=== PATIENT | female | born 2000 | race American Indian/Alaskan Native ===

== ENCOUNTER 2021-10-13 17:16 | Emergency (ER) | payer MEDICAID ==
[2021-10-13 18:44] VITALS: BP 129/78
[2021-10-13 21:09] LABS: Basophils % (Auto) 0.5 % (0.0-1.8); Eosinophils # (Auto) 0.1 K/mm3 (0.0-0.4); Eosinophils % (Auto) 0.9 % (0.0-4.3); Hematocrit 43.7 % (30.3-42.9); Lymphocytes # (Auto) 2.7 K/mm3 (1.2-5.4); Lymphocytes % (Auto) 33.6 % (13.4-35.0); Mean Corpuscular HGB Conc 32 % (30-34); Mean Corpuscular Volume 86 fl (79-97); Monocytes # (Auto) 0.8 K/mm3 (0.0-0.8); Platelet Count 438 K/mm3 (140-440); Red Cell Distribution Width 13.8 % (13.2-15.2)
[2021-10-13 21:21] LABS: Blood Urea Nitrogen 8 mg/dL (7-17); Calcium 9.5 mg/dL (8.4-10.2); Hemolysis Index 35
[2021-10-13 21:23] LABS: BUN/Creatinine Ratio 13
--- NOTE | 2021-10-13 21:48 | XRay Report ---
CHEST 2 VIEWS INDICATION / CLINICAL INFORMATION: COVID+, CP. COMPARISON: None available. FINDINGS: SUPPORT DEVICES: None. HEART / MEDIASTINUM: The heart size and pulmonary vasculature are normal. The aorta is normal in [place]in. LUNGS / PLEURA: No significant pulmonary or pleural abnormality. No pneumothorax. ADDITIONAL FINDINGS: No significant additional findings. IMPRESSION: No acute findings. Signer Name: Jairo Ray MD Signed: 10/13/2021 9:44 PM Workstation Name: [id number]
--- NOTE | 2021-10-13 22:14 | Emergency Department Report ---
HPI - General Chief Complaint: Upper Respiratory Infection PUI?: Yes Time Seen by Provider: 10/13/21 21:49 - HPI HPI: MSE 6 The patient is a 21-year-old female presenting with a chief complaint of chest pain. The patient states she developed cold symptoms September 29 which included headache, body aches and subjective fever as well as a cough that was nonproductive. The patient admits to nausea without vomiting. The patient states her first COVID test came back negative but she was told it was collected incorrectly. The patient was tested again for COVID on 10/09/2020 and the test came back positive. Patient complains of intermittent chest pain has been sharp in nature for the past 3 to 4 days. Patient denies pleurisy. ED Past Medical Hx - Past Medical History Previous Medical History?: No - Surgical History Past Surgical History?: No - Family History Family history: no significant - Social History Smoking Status: Never Smoker Substance Use Type: None - Medications Home Medications: Home Medications Medication Instructions Recorded Confirmed Last Taken Type Cyclobenzaprine [Flexeril] 10 mg PO TID PRN #14 10/13/21 Unknown Rx Ibuprofen [Motrin 800 MG tab] 800 mg PO Q8HR PRN #20 tablet 10/13/21 Unknown Rx ED Review of Systems ROS: Stated complaint: FLU/COVID SYMPTOMS Other details as noted in HPI Constitutional: fever (Subjective) Eyes: denies: eye pain ENT: denies: throat pain Respiratory: cough. denies: shortness of breath Cardiovascular: chest pain Endocrine: no symptoms reported Gastrointestinal: nausea. denies: vomiting Genitourinary: denies: dysuria Musculoskeletal: myalgia Neurological: denies: headache Physical Exam - Physical Exam Vital Signs: Vital Signs 10/13/21 18:43 Temperature 98.3 F Pulse Rate 73 Respiratory 16 Rate Blood Pressure 129/78 [Right] O2 Sat by Pulse 99 Oximetry Physical Exam: GENERAL: The patient is well-developed well-nourished female lying on stretcher not appearing to be in acute distress. [] HEENT: Normocephalic. Atraumatic. Extraocular motions are intact. Patient has moist mucous membranes. NECK: Supple. Trachea midline CHEST/LUNGS: Clear to auscultation. There is no respiratory distress noted. HEART/CARDIOVASCULAR: Regular. There is no tachycardia. There is no gallop rub or murmur. ABDOMEN: Abdomen is soft, nontender. Patient has normal bowel sounds. There is no abdominal distention. SKIN: There is no rash. There is no edema. There is no diaphoresis. NEURO: The patient is awake, alert, and oriented. The patient is cooperative. The patient has no focal neurologic deficits. The patient has normal speech. GCS 15 MUSCULOSKELETAL: There is no evidence of acute injury. ED Course Vital Signs 10/13/21 18:43 Temperature 98.3 F Pulse Rate 73 Respiratory 16 Rate Blood Pressure 129/78 [Right] O2 Sat by Pulse 99 Oximetry - Reevaluation(s) Reevaluation #1: 10/13/21 23:27 Patient's 2-minute walking SPO2 98% on room air ED Medical Decision Making - Lab Data Result diagrams: 10/13/21 20:50 10/13/21 20:50 - EKG Data -: EKG Interpreted by Me EKG shows normal: sinus rhythm, axis Rate: normal - EKG Data When compared to previous EKG there are: previous EKG unavailable Interpretation: other (No ischemic changes seen) - Radiology Data Radiology results: report reviewed (Chest x-ray), image reviewed (Chest x-ray) interpreted by me: Chest x-ray-no definite focal infiltrate, no pneumothorax [facility] [address] [place] [address] XRay Report Signed Patient: BANDAR FLETCHER MR#: [id number] : 2000 Acct:[id number] Age/Sex: 21 / F ADM Date: 10/13/21 Loc: ED Attending Dr: Ordering Physician: BRYNN SINGLETARY MD Date of Service: 10/13/21 Procedure(s): XR chest routine 2V Accession Number(s): [id number] cc: BRYNN SINGLETARY MD Fluoro Time In Minutes: CHEST 2 VIEWS INDICATION / CLINICAL INFORMATION: COVID+, CP. COMPARISON: None available. FINDINGS: SUPPORT DEVICES: None. HEART / MEDIASTINUM: The heart size and pulmonary vasculature are normal. The aorta is normal in caliber. LUNGS / PLEURA: No significant pulmonary or pleural abnormality. No pneumothorax. ADDITIONAL FINDINGS: No significant additional findings. IMPRESSION: No acute findings. Signer Name: Jairo Ray MD Signed: 10/13/2021 9:44 PM Workstation Name: [id number] Transcribed By: RT Dictated By: Jairo Ray MD Electronically Authenticated By: Jairo Ray MD Signed Date/Time: 10/13/212143 DD/ 43 TD/TT: Print Cancel - Differential Diagnosis COVID, myalgia, anxiety, costochondritis, ACS Critical care attestation.: If time is entered above; I have spent that time in minutes in the direct care of this critically ill patient, excluding procedure time. ED Disposition Clinical Impression: COVID, Costochondritis Disposition: HOME / SELF CARE / HOMELESS Is pt being admited?: No Does the pt Need Aspirin: No Condition: Stable Instructions: Costochondritis, [id number] Additional Instructions: Return to the emergency department should you develop worsening symptoms, inability to tolerate food or liquids, high fever or any other concerns Prescriptions: Cyclobenzaprine [Flexeril] 10 mg PO TID PRN #14 PRN Reason: Muscle Spasm Ibuprofen [Motrin 800 MG tab] 800 mg PO Q8HR PRN #20 tablet PRN Reason: Pain, Moderate (4-6) Referrals: [facility] [Provider Group] - 3-5 Days Time of Disposition: 23:29 Heart Score - HEART Score History: Slightly suspicious EKG: Normal Age: < 45 Risk factors: No known risk factors Troponin: < normal limit HEART Score: 0 - EKG Read Time Time EKG Completed: 21:55 EKG Read Time: 21:56
== END 2021-10-13 23:34 | disposition home or self-care (01) ==
LOC: ED 17:16
DX: U07.1 COVID-19 (principal); M94.0 Chondrocostal junction syndrome [Tietze]
CPT/HCPCS: 36415; 71046; 80048; 84484; 84703; 85025; 93005; 99283

== ENCOUNTER 2022-02-05 13:28 | Emergency (ER) | payer MEDICAID ==
[2022-02-05 15:08] VITALS: BP 130/70
[2022-02-05 16:03] LABS: Basophils % (Auto) 0.3 % (0.0-1.8); Eosinophils # (Auto) 0.1 K/mm3 (0.0-0.4); Eosinophils % (Auto) 0.6 % (0.0-4.3); Hematocrit 39.4 % (30.3-42.9); Hemoglobin 12.8 gm/dl (10.1-14.3); Lymphocytes # (Auto) 2.4 K/mm3 (1.2-5.4); Mean Corpuscular HGB Conc 32 % (30-34); Mean Corpuscular Volume 85 fl (79-97); Monocytes # (Auto) 0.7 K/mm3 (0.0-0.8); Monocytes % (Auto) 7.1 % (0.0-7.3); Platelet Count 385 K/mm3 (140-440); Red Blood Count 4.63 M/mm3 (3.65-5.03); Red Cell Distribution Width 14.2 % (13.2-15.2)
[2022-02-05 16:35] LABS: Blood Urea Nitrogen 6 mg/dL (7-17); Calcium 9.9 mg/dL (8.4-10.2); Hemolysis Index 4
[2022-02-05 16:36] LABS: BUN/Creatinine Ratio 10
--- NOTE | 2022-02-05 17:16 | Emergency Department Report ---
ED Female HPI - General Chief complaint: Abdominal Pain Stated complaint: HAVING CRAMPS Time Seen by Provider: 02/05/22 15:18 Source: patient Mode of arrival: Ambulatory Limitations: No Limitations - History of Present Illness Initial comments: Patient is a 21-year-old female that comes to the emergency room after having a positive home test. She is complaining of cramping as if she is can start her period. Her last menstrual cycle was 3-28. This would be her second and she has 1 living child Patient denies any vaginal bleeding. She denies any discharge. She denies any dysuria. She denies back pain. She denies abdominal pain. She denies nausea and vomiting. She denies fever or chills. Patient is ambulatory, not ill nontoxic-appearing on arrival to the ER Severity scale (0 -10): 1 Quality: cramping Improves with: none Worsens with: none Are you Now?: Yes Associated Symptoms: denies other symptoms. denies: vaginal discharge, vaginal bleeding, abdominal pain, nausea/vomiting, fever/chills, headaches, loss of appetite, dysuria, hematuria, rash, seizure, shortness of breath, syncope, weakness - Related Data Sexually active: Yes : 2 Para: 1 Previous Rx's Medication Instructions Recorded Last Taken Type Cyclobenzaprine [Flexeril] 10 mg PO TID PRN #14 10/13/21 Unknown Rx Ibuprofen [Motrin 800 MG tab] 800 mg PO Q8HR PRN #20 tablet 10/13/21 Unknown Rx Allergies Allergy/AdvReac Type Severity Reaction Status Date / Time No Known Allergies Allergy Unverified 10/13/21 18:42 ED Review of Systems ROS: Stated complaint: HAVING CRAMPS Other details as noted in HPI Comment: All other systems reviewed and negative ED Past Medical Hx - Past Medical History Previous Medical History?: No - Surgical History Past Surgical History?: No - Family History Family history: no significant - Social History Smoking Status: Never Smoker Substance Use Type: None - Medications Home Medications: Home Medications Medication Instructions Recorded Confirmed Last Taken Type Cyclobenzaprine [Flexeril] 10 mg PO TID PRN #14 10/13/21 Unknown Rx Ibuprofen [Motrin 800 MG tab] 800 mg PO Q8HR PRN #20 tablet 10/13/21 Unknown Rx ED Physical Exam - General Limitations: No Limitations General appearance: alert, in no apparent distress - Head Head exam: Present: atraumatic, normocephalic - Eye Eye exam: Present: normal appearance - ENT ENT exam: Present: mucous membranes moist - Neck Neck exam: Present: normal inspection - Respiratory Respiratory exam: Present: normal lung sounds bilaterally. Absent: respiratory distress - Cardiovascular Cardiovascular Exam: Present: regular rate, normal rhythm. Absent: systolic murmur, diastolic murmur, rubs, gallop - GI/Abdominal GI/Abdominal exam: Present: soft, normal bowel sounds - Extremities Exam Extremities exam: Present: normal inspection - Back Exam Back exam: Present: normal inspection - Neurological Exam Neurological exam: Present: alert, oriented X3 - Psychiatric Psychiatric exam: Present: normal affect, normal mood - Skin Skin exam: Present: warm, dry, intact, normal color. Absent: rash ED Course Vital Signs 02/05/22 15:07 Temperature 98.6 F Pulse Rate 85 Respiratory 16 Rate Blood Pressure 130/70 O2 Sat by Pulse 100 Oximetry ED Medical Decision Making - Lab Data Result diagrams: 02/05/22 15:39 02/05/22 15:39 - Radiology Data Radiology results: report reviewed, image reviewed see report - Medical Decision Making Labs 02/05/22 02/05/22 02/05/22 15:39 15:39 15:39 WBC 9.8 RBC 4.63 Hgb 12.8 Hct 39.4 MCV 85 MCH 28 MCHC 32 RDW 14.2 Plt Count 385 Lymph % (Auto) 24.0 Holmes % (Auto) 7.1 Eos % (Auto) 0.6 Baso % (Auto) 0.3 Lymph # (Auto) 2.4 Holmes # (Auto) 0.7 Eos # (Auto) 0.1 Baso # (Auto) 0.0 Seg Neutrophils % 68.0 Seg Neutrophils # 6.6 Sodium 137 Potassium 4.0 Chloride 101.8 Carbon Dioxide 20 L Anion Gap 19 BUN 6 L Creatinine 0.6 Estimated GFR > 60 BUN/Creatinine Ratio 10 Glucose 91 Calcium 9.9 HCG, Qual Positive HCG, Quant Blood Type Ord Rhogam Gestat Weeks 02/05/22 02/05/22 15:39 15:39 WBC RBC Hgb Hct MCV MCH MCHC RDW Plt Count Lymph % (Auto) Holmes % (Auto) Eos % (Auto) Baso % (Auto) Lymph # (Auto) Holmes # (Auto) Eos # (Auto) Baso # (Auto) Seg Neutrophils % Seg Neutrophils # Sodium Potassium Chloride Carbon Dioxide Anion Gap BUN Creatinine Estimated GFR BUN/Creatinine Ratio Glucose Calcium HCG, Qual HCG, Quant 6159 H Blood Type B POSITIVE Ord Rhogam Gestat Weeks Rh pos Vital Signs 02/05/22 15:07 Temperature 98.6 F Pulse Rate 85 Respiratory 16 Rate Blood Pressure 130/70 O2 Sat by Pulse 100 Oximetry Labs noted Ultrasound with gestational sac, no ectopic Rh+ hCG noted She had the findings of the above work-up with the patient. She understands that she needs to see [facility] [employer] [facility] in 48 hours for reevaluation. She has been given a referral. On discharge exam patient is ambulatory, not ill, nontoxic and afe brile. She is taking p.o. - Differential Diagnosis ro ab Critical care attestation.: If time is entered above; I have spent that time in minutes in the direct care of this critically ill patient, excluding procedure time. ED Disposition Clinical Impression: Disposition: 01 HOME / SELF CARE / HOMELESS Is pt being admited?: No Does the pt Need Aspirin: No Condition: Stable Instructions: First Trimester of , Abdominal Pain (ED) Additional Instructions: Pelvic rest Tylenol for pain Follow-up with [facility] [facility] in 48 hours as we discussed. Referral below Referrals: REJI CALVO MD [Staff Physician] - 3-5 Days Time of Disposition: 17:15
--- NOTE | 2022-02-05 17:40 | Ultrasound Report ---
OB Ultrasound HISTORY: abd pain preg. TECHNIQUE: Grayscale and color imaging performed. COMPARISON: None FINDINGS: Uterus measures 9.2 x 5.7 x 6.9. Endometrial echo complex measures 1.6 cm. There is a cysti c structure with diameter of 8 mm corresponding with an EGA of 5 weeks and 4 days but there is no fet al pole, yolk sac, or cardiac activity. Ovaries appear unremarkable with likely functional cyst in the left ovary measuring 3.3 cm. No signif icant pelvic free fluid. IMPRESSION: 1. Possible intrauterine gestational sac with no pole identified. 2. Mildly complex left ovarian cyst, likely functional or hemorrhagic. Both of these findings can be followed up with repeat pelvic ultrasound as indicated. Signer Name: Joshua Gregorio MD Signed: 02/05/2022 5:35 PM Workstation Name: [id number]
[2022-02-05] MEDS ORDERED: ACETAMINOPHEN 500 MG TAB PO ONE (17:47)
== END 2022-02-05 18:04 | disposition home or self-care (01) ==
LOC: ED 13:28
DX: O26.891 Other specified pregnancy related conditions, first trimester (principal); R10.9 Unspecified abdominal pain; Z3A.01 Less than 8 weeks gestation of pregnancy
CPT/HCPCS: 36415; 76801; 76817; 80048; 84702; 84703; 85025; 86900; 86901; 99284

== ENCOUNTER 2022-02-28 16:30 | Emergency (ER) | payer MEDICAID ==
[2022-02-28] MEDS ORDERED: ACETAMINOPHEN 500 MG TAB PO ONE (19:56)
[2022-02-28 20:21] LABS: Basophils % (Auto) 0.3 % (0.0-1.8); Eosinophils # (Auto) 0.1 K/mm3 (0.0-0.4); Eosinophils % (Auto) 0.7 % (0.0-4.3); Hematocrit 36.3 % (30.3-42.9); Hemoglobin 12.2 gm/dl (10.1-14.3); Lymphocytes % (Auto) 20.1 % (13.4-35.0); Mean Corpuscular HGB Conc 34 % (30-34); Mean Corpuscular Volume 84 fl (79-97); Monocytes # (Auto) 1.1 K/mm3 (0.0-0.8); Monocytes % (Auto) 10.4 % (0.0-7.3); Platelet Count 347 K/mm3 (140-440); Red Blood Count 4.31 M/mm3 (3.65-5.03)
[2022-02-28 20:31] LABS: Alanine Aminotransferase 8 units/L (7-56); Albumin 4.4 g/dL (3.9-5); Blood Urea Nitrogen 6 mg/dL (7-17); Calcium 9.2 mg/dL (8.4-10.2); Hemolysis Index 4
[2022-02-28 20:42] LABS: BUN/Creatinine Ratio 10
[2022-02-28 20:48] LABS: Bilirubin,Urine NEG (Negative); Blood,Urine NEG (Negative); Color,Urine Yellow (Yellow); Mucus,Urine 2+ /HPF; Protein,Urine <15 mg/dL mg/dL (Negative); Urobilinogen,Urine < 2.0 mg/dL (<2.0)
--- NOTE | 2022-02-28 21:05 | Ultrasound Report ---
ULTRASOUND OBSTETRIC REASON FOR EXAM: PELVIC PAIN TECHNIQUE: Transabdominal and transvaginal ultrasound was performed to evaluate a first trimester pre gnancy. COMPARISON: 02/05/2022 FINDINGS: FINDINGS: The pole, yolk sac, and gestational sac are normal in appearance. [place]-rump length: 21 mm. This corresponds with a gestational age of 8 weeks 5 days. heart rate: 174 bpm Perigestational hemorrhage: No evidence of perigestational hemorrhage on the provided images. MATERNAL FINDINGS: The uterus demonstrates an otherwise unremarkable sonographic appearance. The right ovary demonstrates a normal sonographic appearance. There is a 3.6 cm cyst within the left ovary, likely reflecting corpus luteum. Cul-de-sac: There is no free fluid. IMPRESSION: Viable intrauterine . Gestational age is 8 weeks 5 days by ultrasound. Recommend clinical sc reening and ultrasound follow-up in the second trimester to screen for anomalies. 3.6 cm cyst within left ovary, most consistent with corpus luteum cyst. Signer Name: Robert Guevara MD Signed: 02/28/2022 9:00 PM Workstation Name: [id number]
--- NOTE | 2022-02-28 21:51 | Emergency Department Report ---
ED General Adult HPI - General Chief complaint: Chest Pain Stated complaint: 8WKS /CHEST PAIN/LOWER BACK PAIN Source: patient Mode of arrival: Ambulatory Limitations: No Limitations - History of Present Illness Initial comments: Patient is a A0 21-year-old -[place] female who is approximately 8 weeks gestation presents to the ED with complaint of anterior chest wall pain that radiates to the mid posterior thoracic area due to heavy lifting at work for the last 1 week, worse in the last 2 days. Patient is compliant on diffuse low abdominal pain for the last 3 days. Patient denies vaginal bleeding, vaginal discharge, dizziness, syncope, dysuria, urinary frequency and urgency, low back pain, fever, chills, cough, nausea and vomiting or diarrhea, sore throat, nasal and sinus congestion or headache, traumatic injury or palpitations. MD Complaint: Anterior chest wall pain; mid posterior thoracic pain; lower abdominal pain -: Sudden, week(s) (1) Location: chest, back Radiation: back (Mid posterior thoracic area) Severity scale (0 -10): 6 Quality: aching, sharp Consistency: intermittent Improves with: none Worsens with: movement Associated Symptoms: denies other symptoms, chest pain (Anterior chest wall pain). denies: confusion, cough, diaphoresis, fever/chills, headaches, loss of appetite, malaise, nausea/vomiting, rash, seizure, shortness of breath, syncope, weakness Treatments Prior to Arrival: none - Related Data Previous Rx's Medication Instructions Recorded Last Taken Type Cyclobenzaprine [Flexeril] 10 mg PO TID PRN #14 10/13/21 Unknown Rx Ibuprofen [Motrin 800 MG tab] 800 mg PO Q8HR PRN #20 tablet 10/13/21 Unknown Rx Acetaminophen [Tylenol] 500 mg PO Q6HR PRN #40 tablet 02/28/22 Unknown Rx Allergies Allergy/AdvReac Type Severity Reaction Status Date / Time No Known Allergies Allergy Verified 02/28/22 20:09 ED Review of Systems ROS: Stated complaint: 8WKS /CHEST PAIN/LOWER BACK PAIN Other details as noted in HPI Constitutional: denies: chills, fever Eyes: denies: eye pain, eye discharge, vision change ENT: denies: ear pain, throat pain Respiratory: denies: cough, shortness of breath, wheezing Cardiovascular: chest pain (Anterior chest wall pain radiating to mid posterior thoracic area due to heavy lifting). denies: palpitations Endocrine: no symptoms reported Gastrointestinal: abdominal pain (Lower abdominal pain). denies: nausea, vomiting, diarrhea Genitourinary: denies: urgency, dysuria, discharge Musculoskeletal: denies: back pain, joint swelling, arthralgia Skin: denies: rash, lesions Neurological: denies: headache, weakness, paresthesias Psychiatric: denies: anxiety, depression Hematological/Lymphatic: denies: easy bleeding, easy bruising ED Past Medical Hx - Social History Smoking Status: Never Smoker Substance Use Type: None - Medications Home Medications: Home Medications Medication Instructions Recorded Confirmed Last Taken Type Cyclobenzaprine [Flexeril] 10 mg PO TID PRN #14 10/13/21 02/28/22 Unknown Rx Ibuprofen [Motrin 800 MG tab] 800 mg PO Q8HR PRN #20 tablet 10/13/21 02/28/22 Unknown Rx Acetaminophen [Tylenol] 500 mg PO Q6HR PRN #40 tablet 02/28/22 Unknown Rx ED Physical Exam - General Limitations: No Limitations General appearance: alert, in no apparent distress - Head Head exam: Present: atraumatic, normocephalic, normal inspection - Eye Eye exam: Present: normal appearance, PERRL, EOMI Pupils: Present: normal accommodation - ENT ENT exam: Present: normal exam, normal orophraynx, mucous membranes moist, TM's normal bilaterally, normal external ear exam - Neck Neck exam: Present: normal inspection, full ROM. Absent: tenderness - Respiratory Respiratory exam: Present: normal lung sounds bilaterally, chest wall tenderness (Palpable reproducible anterior chest wall tenderness). Absent: respiratory distress, wheezes, rales, rhonchi, accessory muscle use, decreased breath sounds, prolonged expiratory - Cardiovascular Cardiovascular Exam: Present: regular rate, normal rhythm, normal heart sounds. Absent: systolic murmur, diastolic murmur, rubs, gallop - GI/Abdominal GI/Abdominal exam: Present: soft, tenderness (Palpable mild diffuse lower abdominal tenderness), normal bowel sounds. Absent: guarding, rebound, hyperactive bowel sounds, hypoactive bowel sounds, mass - Extremities Exam Extremities exam: Present: normal inspection, full ROM, normal capillary refill. Absent: tenderness - Back Exam Back exam: Present: normal inspection, full ROM, tenderness (Palpable mid posterior thoracic paraspinal musculoskeletal tenderness), muscle spasm, paraspinal tenderness. Absent: CVA tenderness (R), vertebral tenderness - Neurological Exam Neurological exam: Present: alert, oriented X3, CN II-XII intact, normal gait, reflexes normal - Psychiatric Psychiatric exam: Present: normal affect, normal mood - Skin Skin exam: Present: warm, dry, intact, normal color. Absent: rash ED Course Vital Signs 02/28/22 02/28/22 02/28/22 16:54 20:08 20:09 Temperature 98 F 98.2 F Pulse Rate 70 78 Respiratory 16 20 Rate Blood Pressure 118/65 121/67 [Left] O2 Sat by Pulse 100 100 100 Oximetry ED Medical Decision Making - Lab Data Result diagrams: 02/28/22 19:59 02/28/22 19:59 - Radiology Data Radiology results: report reviewed, image reviewed [facility] [address] [id number] Ultrasound Report Signed Patient: BANDAR FLETCHER MR#: [id number] : 2000 Acct:[id number] Age/Sex: 21 / F ADM Date: 02/28/22 Loc: ED Attending Dr: Ordering Physician: MIREYA DEMPSEY Date of Service: 02/28/22 Procedure(s): US OB <= 14 weeks fetus Accession Number(s): [id number] cc: MIREYA DEMPSEY ULTRASOUND OBSTETRIC REASON FOR EXAM: PELVIC PAIN TECHNIQUE: Transabdominal and transvaginal ultrasound was performed to evaluate a first trimester . COMPARISON: 02/05/2022 FINDINGS: FINDINGS: The pole, yolk sac, and gestational sac are normal in appearance. Fellows-rump length: 21 mm. This corresponds with a gestational age of 8 weeks 5 days. heart rate: 174 bpm Perigestational hemorrhage: No evidence of perigestational hemorrhage on the provided images. MATERNAL FINDINGS: The uterus demonstrates an otherwise unremarkable sonographic appearance. The right ovary demonstrates a normal sonographic appearance. There is a 3.6 cm cyst within the left ovary, likely reflecting corpus luteum. Cul-de-sac: There is no free fluid. IMPRESSION: Viable intrauterine . Gestational age is 8 weeks 5 days by ultrasound. Recommend clinical screening and ultrasound follow-up in the second trimester to screen for anomalies. 3.6 cm cyst within left ovary, most consistent with corpus luteum cyst. Signer Name: Gerard Guevara MD Signed: 02/28/2022 9:00 PM Workstation Name: [id number] Transcribed By: JS Dictated By: GERARD GUEVARA MD Electronically Authenticated By: GERARD GUEVARA MD Signed Date/Time: 02/28/222099 DD/ 58 TD/TT: [facility] [address] [place] [address] Ultrasound Report Signed Patient: BANDAR FLETCHER MR#: [id number] : 2000 Acct:[id number] Age/Sex: 21 / F ADM Date: 02/05/22 Loc: ED Attending Dr: Ordering Physician: MINE SANDOVAL Date of Service: 02/05/22 Procedure(s): US OB transvaginal Accession Number(s): [id number] cc: MINE SANDOVAL OB Ultrasound HISTORY: abd pain preg. TECHNIQUE: Grayscale and color imaging performed. COMPARISON: None FINDINGS: Uterus measures 9.2 x 5.7 x 6.9. Endometrial echo complex measures 1.6 cm. There is a cystic structure with diameter of 8 mm corresponding with an EGA of 5 weeks and 4 days but there is no pole, yolk sac, or cardiac activity. Ovaries appear unremarkable with likely functional cyst in the left ovary measuring 3.3 cm. No significant pelvic free fluid. IMPRESSION: 1. Possible intrauterine gestational sac with no pole identified. 2. Mildly complex left ovarian cyst, likely functional or hemorrhagic. Both of these findings can be followed up with repeat pelvic ultrasound as indicated. Signer Name: Joshua Gregorio MD Signed: 02/05/2022 5:35 PM Workstation Name: [id number] Transcribed By: KELBY Dictated By: Joshua Gregorio MD Electronically Authenticated By: Joshua Gregorio MD Signed Date/Time: 02/05/221734 DD/ 32 TD/TT: - Medical Decision Making This is a A0 21-year-old -[place] female who is approximately 8 weeks gestation presents to the ED with complaint of anterior chest wall pain that radiates to the mid posterior thoracic area due to heavy lifting at work for the last 1 week, worse in the last 2 days. Patient is compliant on diffuse low abdominal pain for the last 3 days. In the ED, patient is alert and oriented x3 and is not in any distress. Lab test results were reviewed and are all nonactionable. Patient was treated for pain in the ED with Tylenol. Transvaginal and pelvic ultrasound showed a viable intrauterine . Gestational age is 8 weeks 5 days by ultrasound. Recommend clinical screening and ultrasound follow-up in the second trimester to screen for anomalies. A 3.6 cm cyst within left ovary, most consistent with corpus luteum cyst. Therefore the patient symptoms are likely due to muscle spasm or muscle strain of chest wall and mid posterior thoracic paraspinal musculoskeletal areas due to heavy lifting and constant standing at work. 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 - Differential Diagnosis UTI; ovarian cyst; muscle strain of back; muscle spasm of back; Critical care attestation.: If time is entered above; I have spent that time in minutes in the direct care of this critically ill patient, excluding procedure time. ED Disposition Clinical Impression: Spasm of thoracic back muscle, Muscle strain of anterior chest wall, Abdominal pain during in first trimester Disposition: HOME / SELF CARE / HOMELESS Is pt being admited?: No Does the pt Need Aspirin: No Condition: Stable Instructions: Muscle Cramps and Spasms, [id number]-[id number], Muscle Strain, Wvwe-[id number], Abdominal Pain During , Uwat-qe-Deqw, Thoracic Strain Rehab-SportsMed Additional Instructions: All lab test results were reviewed and are all nonactionable. Urinalysis unremarkable. Transvaginal ultrasound and pelvic ultrasound showed a viable intrauterine . Gestational age is 8 weeks 5 days by ultrasound. Recommend clinical screening and ultrasound follow-up in the second trimester to screen for anomalies. A 3.6 cm cyst within left ovary, most consistent with corpus luteum cyst. Your back pain is likely due to muscle strain and muscle spasm. Therefore take Tylenol as needed for pain, follow-up with your [employer]INE ENGINEERING SUPERINTENDENT physician in 5 to 7 days for reevaluation or return to the ED immediately if symptoms get worse. Prescriptions: Acetaminophen [Tylenol] 500 mg PO Q6HR PRN #40 tablet PRN Reason: Pain , Severe (7-10) Referrals: MARKELL NOGUERA MD [Staff Physician] - 3-5 Days Time of Disposition: 21:51 Print Language: TURKISH
[2022-02-28 22:32] VITALS: BP 129/68
--- NOTE | 2022-03-02 10:16 | Electrocardiograph Report ---
[facility] Test Date: 2022-02-28 Test Time: 16:47:40 Pat Name: BANDAR FLETCHER Department: Room: Gender: F Transportation Analyst: BLAS : 2000 Requested By: MINE SANDOVAL Order Number: [id number] Reading MD: Alejo Moses Measurements Intervals [place] Rate: 70 P: 73 VT: 161 QRS: 64 QRSD: 84 T: 37 QT: 373 QTc: 403 Interpretive Statements Sinus rhythm Compared to ECG 10/13/2021 21:55:03 No significant changes Electronically Signed On 03-02-2022 10:16:00 EDT by Alejo Moses
== END 2022-02-28 22:31 | disposition home or self-care (01) ==
LOC: ED 16:30
DX: O9A.211 Injury, poisoning and certain other consequences of external causes complicating pregnancy, first trimester (principal); S29.011A Strain of muscle and tendon of front wall of thorax, initial encounter; O26.891 Other specified pregnancy related conditions, first trimester; M62.830 Muscle spasm of back; M54.6 Pain in thoracic spine; M54.50 Low back pain, unspecified; R10.9 Unspecified abdominal pain; X58.XXXA Exposure to other specified factors, initial encounter; Y93.89 Activity, other specified; Y92.89 Other specified places as the place of occurrence of the external cause; Y99.8 Other external cause status; Z79.899 Other long term (current) drug therapy; Z3A.08 8 weeks gestation of pregnancy
CPT/HCPCS: 36415; 76801; 76817; 80053; 81001; 84484; 84702; 85025; 93005; 99284

== ENCOUNTER 2022-04-19 09:32 | Emergency (ER) | payer MEDICAID ==
[2022-04-19 11:16] LABS: Bilirubin,Urine NEG (Negative); Blood,Urine NEG (Negative); Color,Urine Amber (Yellow)
--- NOTE | 2022-04-19 11:53 | Emergency Department Report ---
ED Female HPI - General Chief complaint: Headache Stated complaint: 15WKS /PEVIC PAIN/HEADACHE Time Seen by Provider: 04/19/22 10:58 Source: patient Mode of arrival: Ambulatory Limitations: No Limitations - History of Present Illness Initial comments: Patient is a 21-year-old female that comes to the emergency room today complaining of dysuria. She is 15 weeks . This is her second . Her last menstrual cycle was February 01. She does have an AUTHORIZATION NURSE. She denies abdominal pain or back pain. She denies vaginal bleeding. She denies vaginal discharge. She is ambulatory, not ill nontoxic on arrival to the ER. Patient has taken nothing for pain prior to arrival in the ER. She did not call her AUTHORIZATION NURSE. - Related Data Previous Rx's Medication Instructions Recorded Last Taken Type Amoxicillin [Trimox CAP] 500 mg PO BID #20 capsule 04/19/22 Unknown Rx Allergies Allergy/AdvReac Type Severity Reaction Status Date / Time No Known Allergies Allergy Verified 02/28/22 20:09 ED Review of Systems ROS: Stated complaint: 15WKS /PEVIC PAIN/HEADACHE Other details as noted in HPI Comment: All other systems reviewed and negative ED Past Medical Hx - Past Medical History Previous Medical History?: No - Surgical History Past Surgical History?: No - Family History Family history: no significant - Social History Smoking Status: Never Smoker Substance Use Type: None - Medications Home Medications: Home Medications Medication Instructions Recorded Confirmed Last Taken Type Amoxicillin [Trimox CAP] 500 mg PO BID #20 capsule 04/19/22 Unknown Rx ED Physical Exam - General Limitations: No Limitations General appearance: alert, in no apparent distress - Head Head exam: Present: atraumatic, normocephalic - Eye Eye exam: Present: normal appearance - ENT ENT exam: Present: mucous membranes moist - Neck Neck exam: Present: normal inspection - Respiratory Respiratory exam: Present: normal lung sounds bilaterally. Absent: respiratory distress - Cardiovascular Cardiovascular Exam: Present: regular rate, normal rhythm. Absent: systolic murmur, diastolic murmur, rubs, gallop - GI/Abdominal GI/Abdominal exam: Present: soft, normal bowel sounds - Extremities Exam Extremities exam: Present: normal inspection - Back Exam Back exam: Present: normal inspection - Neurological Exam Neurological exam: Present: alert, oriented X3 - Psychiatric Psychiatric exam: Present: normal affect, normal mood - Skin Skin exam: Present: warm, dry, intact, normal color. Absent: rash ED Course Vital Signs 04/19/22 04/19/22 09:39 17:44 Temperature 98.8 F Pulse Rate 83 76 Respiratory 18 Rate Blood Pressure 110/49 Blood Pressure 114/62 [Left] O2 Sat by Pulse 100 Oximetry ED Medical Decision Making - Lab Data Result diagrams: 04/19/22 14:10 04/19/22 14:10 - Radiology Data Radiology results: report reviewed, image reviewed See report - Medical Decision Making Labs 04/19/22 04/19/22 04/19/22 14:10 14:10 14:10 WBC 8.3 RBC 4.11 Hgb 11.7 Hct 34.7 MCV 85 MCH 29 MCHC 34 RDW 14.6 Plt Count 318 Sodium 137 Potassium 3.6 Chloride 104.0 Carbon Dioxide 22 Anion Gap 15 BUN 6 L Creatinine 0.5 L Estimated GFR > 60 BUN/Creatinine Ratio 12 Glucose 85 Calcium 9.3 HCG, Quant 08883 H Urine Color Urine Turbidity Urine pH Ur Specific [place] Urine Protein Urine Glucose (UA) Urine Ketones Urine Blood Urine Nitrite Urine Bilirubin Urine Urobilinogen Ur Leukocyte Esterase Urine WBC (Auto) Urine RBC (Auto) U Epithel Cells (Auto) Urine Bacteria (Auto) Urine Mucus 04/19/22 Unknown WBC RBC Hgb Hct MCV MCH MCHC RDW Plt Count Sodium Potassium Chloride Carbon Dioxide Anion Gap BUN Creatinine Estimated GFR BUN/Creatinine Ratio Glucose Calcium HCG, Quant Urine Color Yasmine Urine Turbidity Clear Urine pH 6.0 Ur Specific [place] 1.026 Urine Protein >500 Urine Glucose (UA) Neg Urine Ketones Tr Urine Blood Neg Urine Nitrite Neg Urine Bilirubin Neg Urine Urobilinogen 4.0 Ur Leukocyte Esterase Tr Urine WBC (Auto) 13.0 H Urine RBC (Auto) 11.0 U Epithel Cells (Auto) 24.0 H Urine Bacteria (Auto) 1+ Urine Mucus 3+ Vital Signs 04/19/22 09:39 Temperature 98.8 F Pulse Rate 83 Respiratory 18 Rate Blood Pressure 110/49 O2 Sat by Pulse 100 Oximetry Labs noted. UA noted. Patient given a gram of Rocephin. Patient being discharged home on amoxicillin. She does have a urine culture pending. Should she need additional antibiotics we will need to call her. Ultrasound noted. On discharge exam patient is ambulatory, not ill nontoxic. She is taking p.o. Patient being discharged home with discharge plan of care including diet, activity, medications and follow-up. She verbalizes understanding of plan of care. Critical care attestation.: If time is entered above; I have spent that time in minutes in the direct care of this critically ill patient, excluding procedure time. ED Disposition Clinical Impression: Qualifiers: Weeks of gestation: 15 weeks Qualified Code(s): Z3A.15 - 15 weeks gestation of UTI (urinary tract infection) Qualifiers: Urinary tract infection type: site unspecified Hematuria presence: without hematuria Qualified Code(s): N39.0 - Urinary tract infection, site not specified Disposition: 01 HOME / SELF CARE / HOMELESS Is pt being admited?: No Does the pt Need Aspirin: No Condition: Stable Instructions: First Trimester of Additional Instructions: PELVIC REST TYLENOL FOR PAIN SEE OBGYN IN 48 HOURS FOR RECHECK REFERRAL BELOW STAY WELL HYDRATED WITH WATER Prescriptions: Amoxicillin [Trimox CAP] 500 mg PO BID #20 capsule Referrals: PRIMARY CAREMD [Primary Care Provider] - 3-5 Days JOSE MCKEON MD [Staff Physician] - 3-5 Days Forms: Work/School Release Form(ED) Time of Disposition: 16:34
[2022-04-19 12:19] LABS: Bacteria,Urine 1+ /HPF (Negative); Mucus,Urine 3+ /HPF
[2022-04-19] MEDS ORDERED: ACETAMINOPHEN 500 MG TAB PO ONE (13:24)
[2022-04-19 13:26] LABS: Protein,Urine >500 mg/dL (Negative)
[2022-04-19] MEDS ORDERED: SODIUM CHLORIDE 0.9% 1000 ML 1,000 ML IV ONE (13:49)
[2022-04-19] MEDS ORDERED: cefTRIAXone/NS 1 GM/50 ML 1 GM/50 ML BAG IV ONE (13:49)
[2022-04-19 14:21] LABS: Hematocrit 34.7 % (30.3-42.9); Hemoglobin 11.7 gm/dl (10.1-14.3); Mean Corpuscular HGB Conc 34 % (30-34); Mean Corpuscular Volume 85 fl (79-97); Platelet Count 318 K/mm3 (140-440); Red Blood Count 4.11 M/mm3 (3.65-5.03); Red Cell Distribution Width 14.6 % (13.2-15.2)
[2022-04-19 14:43] LABS: Blood Urea Nitrogen 6 mg/dL (7-17); Calcium 9.3 mg/dL (8.4-10.2); Hemolysis Index 4
[2022-04-19 14:47] LABS: BUN/Creatinine Ratio 12
--- NOTE | 2022-04-19 15:49 | Ultrasound Report ---
OB Ultrasound HISTORY: PREG W ABD PAIN. TECHNIQUE: Grayscale and color imaging performed. COMPARISON: 02/28/2022 FINDINGS: Single viable intrauterine gestation with breech presentation. Overall EGA by ultrasound is 16 weeks and 1 day with estimated delivery date of 09/25/2022, this compares to a clinical gestational age of 15 weeks and 4 days. Estimate of weight is 151 g. Heart rate is 134 bpm. Cervical length is 4.1 cm. NOE is subjectively normal. Placenta is anterior in location with no evidence of placenta previa. Simple left ovarian cyst again noted. Right ovary is unremarkable. IMPRESSION: 1. Single viable intrauterine gestation as above. 2. Simple left ovarian cyst. Signer Name: Joshua Gregorio MD Signed: 04/19/2022 3:44 PM Workstation Name: [email or web address]
[2022-04-19 17:45] VITALS: BP 114/62
== END 2022-04-19 17:45 | disposition home or self-care (01) ==
LOC: ED 09:32
DX: O23.42 Unspecified infection of urinary tract in pregnancy, second trimester (principal); N39.0 Urinary tract infection, site not specified; Z3A.15 15 weeks gestation of pregnancy
CPT/HCPCS: 36415; 76801; 76805; 80048; 81001; 84702; 85027; 87086; 99284